=== PATIENT | male | born 1990 | race American Indian/Alaskan Native ===

== ENCOUNTER 2016-08-31 03:17 | Emergency (ER) | payer OTHER ==
[2016-08-31 03:29] VITALS: BP 132/78
[2016-08-31] MEDS ORDERED: TORADOL IM ONE (04:21)
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
== END 2016-08-31 05:04 | disposition home or self-care (01) ==
LOC: ED 03:17
DX: S16.1XXA Strain of muscle, fascia and tendon at neck level, initial encounter (principal); V89.2XXA Person injured in unspecified motor-vehicle accident, traffic, initial encounter; Y93.89 Activity, other specified; Y99.9 Unspecified external cause status; Y92.410 Unspecified street and highway as the place of occurrence of the external cause
CPT/HCPCS: 96372; 99282; J1885